=== PATIENT | male | born 1985 ===

== ENCOUNTER 2017-08-24 00:50 | Emergency (ER) | payer OTHER ==
--- NOTE | 2017-08-24 01:00 | C.PDOC ---
History Of Present Illness Patient presents to the ER with a complaint of a generalized allergic reaction of unknown etiology. Patient is currently speaking in complete sentences. Denies SOB, difficulty swallowing, or chest pain. Time Seen by Provider: 08/24/17 00:59 Chief Complaint (Nursing): Allergic Reaction History Per: Patient History/Exam Limitations: no limitations Onset/Duration Of Symptoms: Hrs Current Symptoms Are (Timing): Worse Possible Cause: Unknown Associated Symptoms: Skin Rash, Itching. denies: Swelling, Dyspnea, Trouble Swallowing, Dizziness, Redness, Chest Pain Home/EMS Treatment: None Severity: Moderate Pain Scale Rating Of: 4 Recent travel outside of the [place]: No Additional History Per: Family Past Medical History Reviewed: Historical Data, Nursing Documentation, Vital Signs Vital Signs: Last Vital Signs Temp 97.5 F L 08/24/17 00:53 Pulse 102 H 08/24/17 00:53 Resp 18 08/24/17 00:53 BP 150/84 08/24/17 00:53 Pulse Ox 97 08/24/17 01:47 - Medical History PMH: No Chronic Diseases Surgical History: No Surg Hx Family History: States: No Known Family Hx - Social History Hx Alcohol Use: No Hx Substance Use: No - Immunization History Hx Tetanus Toxoid Vaccination: No Hx Influenza Vaccination: No Hx Pneumococcal Vaccination: No Review Of Systems Constitutional: Negative for: Fever, Chills Eyes: Negative for: Vision Change ENT: Negative for: Throat Pain Cardiovascular: Negative for: Chest Pain Respiratory: Negative for: Cough, Shortness of Breath, Wheezing Gastrointestinal: Negative for: Nausea, Vomiting Genitourinary: Positive for: Rash (urticarial) Musculoskeletal: Negative for: Back Pain Skin: Positive for: Rash Neurological: Negative for: Weakness Psych: Negative for: Anxiety Physical Exam - Physical Exam Appears: Non-toxic Skin: Warm, Dry, Rash (Diffuse urticaria) Head: Normacephalic Eye(s): bilateral: Normal Inspection Nose: Normal Oral Mucosa: Moist Tongue: Normal Appearing Lips: Normal Appearing Throat: No Erythema, No Other (Swelling) Neck: Trachea Midline, Supple Chest: Symmetrical Cardiovascular: Rhythm Regular Respiratory: No Rales, No Rhonchi, No Wheezing Gastrointestinal/Abdominal: Soft, No Tenderness Back: No CVA Tenderness Extremity: Normal ROM Extremity: Bilateral: Atraumatic Pulses: Left Dorsalis Pedis: Normal, Right Dorsalis Pedis: Normal Neurological/Psych: Oriented x3, Normal Speech, Normal Cognition Gait: Steady ED Course And Treatment O2 Sat by Pulse Oximetry: 97 (Room air) Pulse Ox Interpretation: Normal Progress Note: Benadryl, pepcid, solumedrol, prednisone, and IV fluids administered. Critical Care Time - Critical Care Note Total Time (in mins): 30 Documented critical care: time excludes all time spent performing seperately billable procedures. Disposition Counseled Patient/Family Regarding: Studies Performed, Diagnosis, Need For Followup, Rx Given - Disposition Referrals: [facility] [Outside] [facility] [Outside] Disposition: HOME/ ROUTINE Disposition Time: 01:00 Condition: FAIR Additional Instructions: Please return if symptoms recur. Also use benadryl, pepcid and claritin Prescriptions: Epinephrine [Epipen] 0.3 mg IJ ONCE PRN #2 auto.injct PRN Reason: Anaphylaxis Prednisone [Deltasone] 20 mg PO DAILY #5 tablet Instructions: Urticaria (GEN), General Allergic Reaction (ED) Forms: [employer] (Moroccan) - Clinical Impression Clinical Impression: Acute allergic reaction - Scribe Statement The provider has reviewed the documentation as recorded by the Scribe Bao Olsen All medical record entries made by the Scribe were at my direction and personally dictated by me. I have reviewed the chart and agree that the record accurately reflects my personal performance of the history, physical exam, medical decision making, and the department course for this patient. I have also personally directed, reviewed, and agree with the discharge instructions and disposition.
[2017-08-24] MEDS ORDERED: DiphenhydrAMINE 50 mg/ml Inj IVP STA (01:06)
[2017-08-24] MEDS ORDERED: Lactated Ringer's 1,000 ML IV ONE (01:07)
[2017-08-24] MEDS ORDERED: Lactated Ringer's 1,000 ML ONE (01:14)
[2017-08-24] MEDS ORDERED: DiphenhydrAMINE 50 mg/ml Inj ONE (01:15)
[2017-08-24 03:07] VITALS: BP 119/70; PULSE 81; RESP 17; TEMP 97.9; O2SAT 95
== END 2017-08-24 03:13 | disposition home or self-care (01) ==
LOC: C.ER 00:50 → SUPCPDRO 00:50 → C.ER 03:13
DX: L50.0 Allergic urticaria (principal)
CPT/HCPCS: 96361; 96374; 96375; 99284; J1200; J2930; J7120